=== PATIENT | female | born 1965 | race Caucasian/White ===

== ENCOUNTER 2019-01-27 05:38 | Outpatient (CLI) | payer OTHER ==
[~2019-01-27] VITALS: Ht 160 cm; Wt 52.7 kg
[~2019-01-27 05:38] MED LIST: CEFU500T5 PO
[2019-01-27] MEDS ORDERED: BIOT800T PO (11:00)
[2019-01-27] MEDS ORDERED: [UNRECOGNIZED DRUG - CODE] PO (11:00)
[2019-01-31] MEDS ORDERED: PANT40TA2 PO (14:03)
== END 2019-01-27 11:00 | disposition home or self-care (01) ==
LOC: PREOP 05:38
PROVIDERS: ATTEND Surgery
DX: Z01.818 Encounter for other preprocedural examination (principal)

== ENCOUNTER → 2019-05-14 | Outpatient (CLI) | payer OTHER ==
[~2019-05-14] MED LIST changes: +BIOT800T PO; +FAMO-108 PO; +PANT40TA2 PO
--- NOTE | 2019-05-14 10:33 | Diagnostic Imaging Report ---
INDICATION: Abdominal pain and bloating for 3 days. Time of exam 9:43 AM No free air is identified. There are surgical clips in gallbladder fossa. The bowel gas pattern appears to be nonobstructed. No pathological calcifications are seen. IMPRESSION: No acute abnormality is detected. Dictated by: Dictated on workstation # [id number]
== END ==
LOC: RAD FS 09:37
PROVIDERS: ATTEND Nurse Practitioner Family
DX: R10.13 Epigastric pain (principal); R14.0 Abdominal distension (gaseous)
CPT/HCPCS: 74019

== ENCOUNTER → 2019-10-02 | Outpatient (CLI) | payer OTHER ==
--- NOTE | 2019-10-02 11:56 | Diagnostic Imaging Report ---
Indication: Left thumb pain 3 views of left thumb show soft tissue swelling. There is no fracture, dislocation or radiopaque foreign object. IMPRESSION: Soft tissue swelling. No acute osseous abnormality seen. Dictated by: Dictated on workstation # [id number]
== END ==
LOC: RAD FS 11:28
PROVIDERS: ATTEND Nurse Practitioner
DX: M79.645 Pain in left finger(s) (principal); M79.89 Other specified soft tissue disorders
CPT/HCPCS: 73140

== ENCOUNTER → 2019-10-09 | Outpatient (CLI) | payer OTHER ==
--- NOTE | 2019-10-09 11:20 | Diagnostic Imaging Report ---
PROCEDURE: MRI left upper extremity without contrast. TECHNIQUE: Multiplanar, multisequence non contrast-enhanced MRI of the left upper extremity was accomplished. INDICATION: Subcutaneous mass of the left thumb. COMPARISON: Radiographs from 10/02/2019. FINDINGS: No acute fracture is seen in the left thumb. Alignment is normal. The ulnar and radial collateral ligaments are intact at the MCP joint and IP joint. The flexor and extensor tendons appear to be intact. The imaged musculature appears normal with no atrophy seen. At the ulnar and volar aspect of the left thumb proximal phalanx, there is a lobulated STIR bright fluid collection measuring 1.4 x 0.8 cm on axial imaging, and 1.5 cm craniocaudal. There is mild surrounding soft tissue edema. No communication with the joint is seen. No contrast was given to evaluate for internal enhancement. IMPRESSION: 1. T2 bright soft tissue mass at the ulnar and volar aspect of the left thumb proximal phalanx, thought to be a fluid collection on this noncontrast study. This could represent a hematoma or abscess. Dictated by: Dictated on workstation # [id number]
== END ==
LOC: RAD 09:02
PROVIDERS: ATTEND Nurse Practitioner
DX: R22.32 Localized swelling, mass and lump, left upper limb (principal)
CPT/HCPCS: 73218

== ENCOUNTER 2019-10-17 11:20 | Outpatient (CLI) | payer OTHER ==
[~2019-10-17] VITALS: Ht 162 cm; Wt 48.1 kg
== END 2019-10-17 11:21 | disposition home or self-care (01) ==
LOC: PREOP 11:20
PROVIDERS: ATTEND Orthopaedic Surgery
DX: Z01.818 Encounter for other preprocedural examination (principal)

== ENCOUNTER 2020-04-13 07:54 | Emergency (ER) | payer OTHER ==
[~2020-04-13] VITALS: Ht 160 cm; Wt 50.0 kg
[~2020-04-13 07:54] MED LIST changes: +ACHD5005 PO
--- NOTE | 2020-04-13 08:16 | ED Headache ---
General Chief Complaint: Head/Cervical Problems Stated Complaint: HEADACHE; TREMBLING; HIGH BP Source: patient (MARC SOSA MD) History of Present Illness Date Seen by Provider: Apr 13, 2020 Time Seen by Provider: 07:55 Initial Comments 54-year-old female presenting with occipital headache that has been off and on for the last 2 weeks. It was worse this morning when she woke up around 5 AM. She feels like her legs are weak and like "Jell-O". She was feeling like she had very dry mouth and was feeling very dizzy and lightheaded. She states this feels similar to when she had a stroke in 2013. At that time she had a blood clot and bleed in her cerebellum. She denies any fall or head injury. She states the only prescription medicine she is taking is for bladder control. She denies any blood thinners or aspirin. She does not take any medicine for blood pressure. When she was [facility] this morning they took her blood pressure and it was 180/100. Here in the emergency department she has been 160/90 initially and then slowly came down to 150/80. She denies any chest pain or nausea or vomiting. She has no diarrhea. She has no burning or pain with urination. She denies any cough or shortness of breath. She denies any change in vision but just states that she has a sensation of being lightheaded and dizzy. (MARC SOSA MD) Initial Comments Assumed the patient in transfer from [place] emergency room because they do not have CT capabilities at this time. I agree with the above documented history and physical exam. Last known well time was about 9:00 last night when she went to sleep. She woke up at 5 this morning with the symptoms of feeling weak. The headache has been intermittent for the past 2 to 3 weeks. She did go to an party host/hostess and got a new prescription but that did not seem to help her headaches. 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 She denies any trauma. She is only on medicines for urinary incontinence. She does not take aspirin. She does follow with [facility]. Echocardiogram by Dr. Ulloa 2014 demonstrating EF of 50 to 55% and only trivial aortic mitral and tricuspid regurgitation. (SANDRA MONTES DE OCA) Allergies and Home Medications Allergies Coded Allergies: codeine (Verified Adverse Reaction, Mild, Nausea, 10/22/19) sertraline (Verified Adverse Reaction, Mild, Nausea, 10/22/19) Home Medications Hydrocodone/Acetaminophen 1 Each Tablet, 1 EACH PO Q4H PRN for PAIN-SEVERE (8- 10) Prescribed by: CHELO HOWARD on 10/22/19 1056 Patient Home Medication List Home Medication List Reviewed: Yes (MARC SOSA MD) Home Medication List Reviewed: Yes (SANDRA MONTES DE OCA) Review of Systems Review of Systems Constitutional: No chills; dizziness; No fever; malaise Eyes: Denies Blurred Vision, Denies Pain, Denies Photophobia, Denies Tunnel Vis ion, Denies Vision Changes Ears, Nose, Mouth, Throat: denies ear pain, denies ear discharge, denies nose p ain, denies nose discharge, denies epistaxis, denies mouth swelling, denies loose teeth Respiratory: No cough, No short of breath Cardiovascular: No chest pain, No palpitations Gastrointestinal: No nausea, No vomiting Genitourinary: No dysuria, No frequency Musculoskeletal: No back pain, No neck pain Skin: No rash Psychiatric/Neurological: Anxiety (Worried she is having another stroke like in 2013), Headache (Occipital and left-sided headache) (MARC SOSA MD) All Other Systems Reviewed Negative Unless Noted: Yes (SANDRA MONTES DE OCA) Past Yysfkmu-Ntexpf-Dzrldy Hx Past Med/Social Hx: Reviewed Nursing Past Med/Soc Hx (MARC SOSA MD) Patient Social History Alcohol Use: Denies Use Smoking Status: Current Everyday Smoker Type Used: Cigarettes 2nd Hand Smoke Exposure: Yes Recent Hopitalizations: No (MARC SOSA MD) Alcohol Use: Occasionally Uses Smoking Status: Current Everyday Smoker Type Used: Cigarettes (Pack per day) (SANDRA MONTES DE OCA) Immunizations Up To Date Date of Pneumonia Vaccine: Nov 27, 2016 Date of Influenza Vaccine: Nov 25, 2018 (MARC SOSA MD) Seasonal Allergies Seasonal Allergies: No (MARC SOSA MD) Past Medical History Surgeries: Yes (BRAIN SURGERY (CLOT REMOVED), TUMOR REMOVED BEHIND EAR, ) Gallbladder, Hysterectomy Respiratory: No Currently Using CPAP: No Currently Using BIPAP: No Cardiac: No Neurological: Yes Stroke Sexually Transmitted Disease: No HIV/AIDS: No Genitourinary: No Gastrointestinal: Yes Gastroesophageal Reflux Musculoskeletal: No Endocrine: No HEENT: Yes (GLASSES, DENTURES) Cancer: No Brain Psychosocial: No Integumentary: No Blood Disorders: No Adverse Reaction/Blood Tranf: No (N/A) (MARC SOSA MD) Physical Exam Vital Signs Vital Signs - First Documented 04/13/20 08:18 Temp 36.2 Pulse 93 Resp 18 B/P (MAP) 164/90 (114) Pulse Ox 99 O2 Delivery Room Air (SANDRA MONTES DE OCA) Vital Signs Capillary Refill : (MARC SOSA MD) Height, Weight, BMI Height: 5'3.00" Weight: 125lbs. oz. 56.217091ja; 18.32 BMI Method: General Appearance: mild distress (anxious), thin HEENT: PERRL/EOMI, normal ENT inspection, TMs normal, pharynx normal; No photophobia Neck: non-tender, full range of motion, supple, normal inspection; No carotid bruit Cardiovascular: normal peripheral pulses, regular rate, rhythm Respiratory: chest non-tender, lungs clear, normal breath sounds, no respi ratory distress, no accessory muscle use Gastrointestinal: normal bowel sounds, non tender, soft, no pulsatile mass Extremities: normal range of motion, non-tender, normal capillary refill Psychiatric: alert, oriented x 3 Crainal Nerves: No normal hearing (hard of hearing); normal speech, PERRL Coordination/Gait: normal finger to nose, normal gait Motor/Sensory: no motor deficit, sensory deficit (slight decreased sensation to right cheek/face compared to left) Skin: normal color, warm/dry (MARC SOSA MD) Psychiatric: alert, oriented x 3 Crainal Nerves: No normal hearing (Chronic hard of hearing but able to hear fingers rubbing beside her head) (SANDRA MONTES DE OCA) Progress/Results/Core Measures Results/Orders Lab Results Laboratory Tests Test 04/13/20 09:30 04/13/20 09:47 04/13/20 09:49 Range/Units White Blood Count 10.6 4.3-11.0 10^3/uL Red Blood Count 4.45 3.80-5.11 10^6/uL Hemoglobin 14.9 11.5-16.0 g/dL Hematocrit 43 35-52 % Mean Corpuscular Volume 97 80-99 fL Mean Corpuscular Hemoglobin 34 25-34 pg Mean Corpuscular Hemoglobin Concent 35 32-36 g/dL Red Cell Distribution Width 11.7 10.0-14.5 % Platelet Count 207 130-400 10^3/uL Mean Platelet Volume 10.3 9.0-12.2 fL Immature Granulocyte % (Auto) 0 % Neutrophils (%) (Auto) 73 42-75 % Lymphocytes (%) (Auto) 19 12-44 % Monocytes (%) (Auto) 6 0-12 % Eosinophils (%) (Auto) 1 0-10 % Basophils (%) (Auto) 1 0-10 % Neutrophils # (Auto) 7.8 1.8-7.8 10^3/uL Lymphocytes # (Auto) 2.0 1.0-4.0 10^3/uL Monocytes # (Auto) 0.7 0.0-1.0 10^3/uL Eosinophils # (Auto) 0.1 0.0-0.3 10^3/uL Basophils # (Auto) 0.1 0.0-0.1 10^3/uL Immature Granulocyte # (Auto) 0.0 0.0-0.1 10^3/uL Prothrombin Time 12.5 12.2-14.7 SEC INR Comment 1.0 0.8-1.4 Activated Partial Thromboplast Time 26 24-35 SEC D-Dimer < 0.27 0.00-0.49 UG/ML Sodium Level 136 135-145 MMOL/L Potassium Level 4.3 3.6-5.0 MMOL/L Chloride Level 102 98-107 MMOL/L Carbon Dioxide Level 26 21-32 MMOL/L Anion Gap 8 5-14 MMOL/L Blood Urea Nitrogen 14 7-18 MG/DL Creatinine 0.74 0.60-1.30 MG/DL Estimat Glomerular Filtration Rate > 60 BUN/Creatinine Ratio 19 Glucose Level 97 70-105 MG/DL Calcium Level 9.2 8.5-10.1 MG/DL Corrected Calcium 8.9 8.5-10.1 MG/DL Total Bilirubin 0.9 0.1-1.0 MG/DL Aspartate Amino Transf (AST/SGOT) 25 5-34 U/L Alanine Aminotransferase (ALT/SGPT) 16 0-55 U/L Alkaline Phosphatase 64 40-136 U/L Troponin I < 0.028 <0.028 NG/ML Total Protein 7.0 6.4-8.2 GM/DL Albumin 4.4 3.2-4.5 GM/DL Glucometer 97 70-110 MG/DL Urine Color YELLOW Urine Clarity CLEAR Urine pH 7.0 5-9 Urine Specific [place] <=1.005 1.016-1.022 Urine Protein NEGATIVE NEGATIVE Urine Glucose (UA) NEGATIVE NEGATIVE Urine Ketones NEGATIVE NEGATIVE Urine Nitrite NEGATIVE NEGATIVE Urine Bilirubin NEGATIVE NEGATIVE Urine Urobilinogen 0.2 < = 1.0 MG/DL Urine Leukocyte Esterase NEGATIVE NEGATIVE Urine RBC (Auto) TRACE-I NEGATIVE Urine RBC RARE /HPF Urine WBC NONE /HPF Urine Squamous Epithelial Cells 2-5 /HPF Urine Crystals NONE /LPF Urine Bacteria NEGATIVE /HPF Urine Casts NONE /LPF Urine Mucus NEGATIVE /LPF Urine Culture Indicated NO (SANDRA MONTES DE OCA) My Orders Orders - SANDRA MONTES DE OCA Cbc With Automated Diff (04/13/20 09:38) Protime With Inr (04/13/20:38) Partial Thromboplastin Time (04/13/20 09:38) Comprehensive Metabolic Panel (04/13/20 09:38) Fibrin Degradation Products (04/13/20 09:38) Troponin I (04/13/20:38) Ua Culture If Indicated (04/13/20 09:38) Chest 1 View, Ap/Pa Only (04/13/20 09:38) Ekg Tracing (04/13/20 09:38) Nothing By Mouth (04/13/20 Lunch) Accucheck Stat ONCE (04/13/20 09:38) Ed Iv/Invasive Line Start (04/13/20 09:38) Ed Iv/Invasive Line Start (04/13/20 09:38) Vital Signs Stroke Patient Q15M (04/13/20 09:38) O2 (04/13/20 09:38) Intake & Output 06,14,22 (04/13/20 09:38) Monitor-Rhythm Ecg Trace Only (04/13/20 09:38) Dysphagia Screening Tool (04/13/20 09:38) Ct Angio Head W Wo (04/13/20 09:38) Lipid Panel (04/14/20 06:00) Ed Iv/Invasive Line Start (2/23/21 09:40) Ns Iv 500 Ml (Sodium Chloride 0.9%) (04/13/20 09:45) Iohexol Injection (Omnipaque 350 Mg/Ml 1 (04/13/20 10:15) Received Contrast (Hold Metformin- Contr (04/13/20 10:15) Sodium Chloride Flush (Catheter Flush Sy (04/13/20 10:15) Ns (Ivpb) (Sodium Chloride 0.9% Ivpb Bag (04/13/20 10:15) Ketorolac Injection (Toradol Injection) (04/13/20 10:45) Promethazine Injection (Phenergan Injec (04/13/20 10:45) Diphenhydramine Tablet (Benadryl Tablet) (04/13/20 10:45) (SANDRA MONTES DE OCA) Medications Given in ED Current Medications Medications Dose Ordered Sig/Rashard Route Start Time Stop Time Status Last Admin Dose Admin Diphenhydramine HCl 25 mg ONCE ONCE PO 04/13/20 10:45 04/13/20 10:46 DC 04/13/20 10:43 25 MG Iohexol 75 ml ONCE ONCE IV 04/13/20 10:15 04/13/20 10:20 DC 04/13/20 10:40 75 ML Ketorolac Tromethamine 30 mg ONCE ONCE IVP 04/13/20 10:45 04/13/20 10:46 DC 04/13/20 10:43 30 MG Promethazine HCl 25 mg ONCE ONCE IVP 04/13/20 10:45 04/13/20 10:46 DC 04/13/20 10:45 25 MG Sodium Chloride 100 ml ONCE ONCE IV 04/13/20 10:15 04/13/20 10:20 DC 04/13/20 10:40 80 ML Sodium Chloride 500 ml @ 0 mls/hr Q0M ONCE IV 04/13/20 09:45 04/13/20 09:46 DC 04/13/20 10:36 500 MLS/HR (SANDRA MONTES DE OCA) Vital Signs/I&O 04/13/20 04/13/20 04/13/20 08:18 08:31 09:30 Temp 36.2 36.2 37.0 Pulse 93 93 63 Resp 18 18 16 B/P (MAP) 164/90 (114) 164/90 (114) 142/80 (100) Pulse Ox 99 99 100 O2 Delivery Room Air Room Air Room Air (SANDRA MONTES DE OCA) Progress Progress Note : Progress Note When advised pt CT scan is down so unable to complete work up for stroke here and will have to transfer to [facility] for CT but can do blood work and ECG here she asked to be able to have her family drive her down so she could be seen and not have to go through extra expense of transfer and multiple bills. She has a NIHSS of 1 with decreased sensation to right cheek/face. She is declining ambulance transport but willing to do rest of work up and wants family to transport her so she can leave right away rather than wait for labs and arranging transport. 0827 d/w Yue at [facility] ED and she will have Dr. Montes De Oca call me back when he is available 0835 Dr. Montes De Oca updated about pt coming by POV. (MARC SOSA MD) Progress Note #1: Time: :44 Progress Note On repeat examination in the ER I agree with the above documented history and physical exam by Dr. Sosa. The patient does indeed have one-point NIH for decreased sensation on the left side of her face compared to right. She has no other neurologic symptoms besides paresthesias of bilateral lower extremities. Certainly her subacute, and intractable headaches for the past few weeks are concerning and could be causing some anxiety to explain some of her symptoms however a CT of her head is warranted. Because of her new onset symptoms with a last known well time that it is greater than 4 hours were going to go for a CT angiogram if her initial CT head does not show a intracranial hemorrhage. We will then consult with neurology at [facility] about the possibility of stroke. She i s not likely to be a candidate for TPA because the benefits will be to few with an NIH of one-point. Progress Note #2: Time: :44 Progress Note After treatment for complex migraine the patient symptoms are improved. She is having no neurologic symptoms. NIH is 0 points. Her headache is only mild at this time. We did offer her another dose of medication before she left. We gave good return precautions. Patient declined any further medicines and will follow up with primary care. (SANDRA MONTES DE OCA) Initial ECG Impression Date: Apr 13, 2020 Initial ECG Impression Time: 09:29 Initial ECG Rate: 58 Initial ECG Rhythm: Normal Sinus Initial ECG Intervals: Normal Initial ECG Impression: Normal Initial ECG Comparisson: Unchanged Comment Normal sinus rhythm without clinically relevant ST changes. (SANDRA MONTES DE OCA) Diagnostic Imaging Diagonstic Imaging: Xray Plain Films/CT/US/NM/MRI: chest (1v) Comments [facility], [place] NAME: MIGUELITO MIRANDA MED REC#: [id number] PT STATUS: REG ER : 1965 PHYSICIAN: SANDRA MONTES DE OCA MD ADMIT DATE: 04/13/20/ER Draft Date of Exam:04/13/20 CHEST 1 VIEW, AP/PA ONLY INDICATION: Weakness. Headache. FINDINGS: The portable chest shows the lungs to be well-aerated and clear. The heart is not enlarged. No pulmonary edema or hilar adenopathy. No pneumothorax or pleural effusion. A quality assurance monitor overlies the left chest. IMPRESSION: Normal portable chest. Dictated on workstation # [id number] Dict: 04/13/20 1056 Trans: 04/13/20 1058 [id number] Interpreted by: MIGUE FRAGA MD Electronically signed by: Reviewed: Reviewed by Me Diagonstic Imaging: CT (CT angiogram) Plain Films/CT/US/NM/MRI: head (Head and neck) Comments NAME: MIGUELITO MIRANDA MED REC#: [id number] PT STATUS: REG ER : 1965 PHYSICIAN: SANDRA MONTES DE OCA MD ADMIT DATE: 04/13/20/ER Draft Date of Exam:04/13/20 CT ANGIO HEAD W WO CLINICAL INDICATION: Patient with history of stroke and bleed in 2013. Patient has headache, tingling in legs and left facial deficits. EXAMS: 1: Head CT with and without IV contrast. Auto Exposure Controls were utilized during the CT exam to meet ALARA standards for radiation dose reduction. 2: CT angiogram of the head performed with 75 cc of Omnipaque 350 IV contrast. Sagittal and coronal MIP reformations were created for better visualization of vascular anatomy. COMPARISON: MRI of the brain and MRA of the barrow of [place] without contrast dated 04/17/2014. FINDINGS: Head CT: There is skull streak artifact which obscures portions of brainstem and posterior fossa. There is occipital craniectomy with cranioplasty changes noted. There is minimal encephalomalacia involving the medial aspect of left cerebellum which correlates to area of prior intraparenchymal hemorrhage. The brain parenchymal volume appears appropriate for patient's age. Minimally prominent fluid-filled occipital horn of left lateral ventricle is again seen. There is no abnormal IV contrast enhancement. There is normal zavala-white matter distinction. There is no hydrocephalus, brain herniation or midline shift. Basal cisterns are unremarkable. Besides postop changes, the extracranial soft tissue, skull, and orbits are unremarkable. Paranasal sinuses and mastoid air cells are clear. CT angiogram: The visualized distal cervical ICA, petrous, cavernous, and intracranial ICA are patent. The bilateral ACAs and their distal branches are patent. The bilateral MCAs and their distal branches are patent. The intradural bilateral vertebral arteries, basilar artery, superior cerebellar artery, and bilateral WIRE LOOP MACHINE OPERATOR are patent. The dural venous sinuses are patent. IMPRESSION: 1: Unremarkable CT angiogram of the [place] of [place] with no significant stenosis, aneurysm, vascular malformation, or dissection. 2: Postop changes with craniectomy and cranioplasty changes involving the occipital region. Again seen small area of encephalomalacia involving the medial aspect of left cerebellum which correlates to prior area of intraparenchymal hemorrhage. Dictated on workstation # [id number] Dict: 04/13/20 1051 Trans: 04/13/20 1107 [facility] [id number] Interpreted by: RADHA TORRES MD Electronically signed by: Reviewed: Reviewed by Me (SANDRA MONTES DE OCA) Consults : Consults Notes Dr Carballo, neurology at [facility] he says he is not impressed from a neurologic standpoint for stroke ischemic or otherwise. Since her decreased sensation has not progressed and is only limited to her face and in combination with presentation of a headache he would think more of a complex migraine presentation. He would recommend getting a migraine cocktail and have her follow-up through primary care office from there. He does not recommend any further vascular imaging or work-up at this time. He does not recommend TPA at this time. (SANDRA MONTES DE OCA) Departure Impression Primary Impression: Occipital headache Additional Impressions: Elevated blood pressure reading Complex migraine Disposition: 01 HOME, SELF-CARE Condition: Improved Departure-Patient Inst. Decision time for Depature: 11:45 (SANDRA MONTES DE OCA) Referrals: NICOLLE FLORES APRN (PCP) Primary Care Physician [facility] (Family) Primary Care Physician Patient Instructions: Headache, Adult (DC) Add. Discharge Instructions: Tylenol 1000 mg every 8 hours as necessary for pain. Ibuprofen 800 mg every 8 hours as necessary for pain. Take today and get some sleep. Follow-up with your primary care doctor if your symptoms persist to discuss other possible causes for your headache. Return to the ER promptly if you experience total numbness, loss of control of limbs, facial droop, slurred speech or other worrisome symptoms. All discharge instructions reviewed with patient and/or family. Voiced understanding. Work/School Note: Work Release Form Date Seen in the Emergency Department: Apr 13, 2020 Return to Work: Apr 14, 2020 Restrictions: No Restrictions NIH Stroke Scale NIH Stroke Scale NIH : Select: Initial (0824) Level of Consciousness: 0=Alert Level of Consciousness-Questio: 0=Answers both month/age LOC Commands: 0=Performs both tasks Gaze: 0=Normal Visual Reyes: 0=No visual loss Facial Movement (Facial Paresi: 0=Normal symmetrical mnt Motor Function-Arms Right: 0=No drift Motor Function-Arms Left: 0=No drift Motor Function-Legs Right: 0=No drift Motor Function-Legs Left: 0=No drift Limb Ataxia: 0=Absent Sensory: 1=Mild to Moderate loss Best Language: 0=No aphasia Dysarthria: 0=Normal Extinction & Inattention: 0=No abnormality NIH Stroke Scale Score: 1 (MARC SOSA MD) NIH #1: Select: Other (Post transfer pre-CT) Level of Consciousness: 0=Alert Level of Consciousness-Questio: 0=Answers both month/age LOC Commands: 0=Performs both tasks Gaze: 0=Normal Visual Reyes: 0=No visual loss Facial Movement (Facial Paresi: 0=Normal symmetrical mnt Motor Function-Arms Right: 0=No drift Motor Function-Arms Left: 0=No drift Motor Function-Legs Right: 0=No drift Motor Function-Legs Left: 0=No drift Limb Ataxia: 0=Absent Sensory: 1=Mild to Moderate loss (Left face decreased sensation compared to right all 3 branches) Best Language: 0=No aphasia Dysarthria: 0=Normal Extinction & Inattention: 0=No abnormality NIH Stroke Scale Score: 1 NIH #2: Select: Discharge Level of Consciousness: 0=Alert Level of Consciousness-Questio: 0=Answers both month/age LOC Commands: 0=Performs both tasks Gaze: 0=Normal Visual Reyes: 0=No visual loss Facial Movement (Facial Paresi: 0=Normal symmetrical mnt Motor Function-Arms Right: 0=No drift Motor Function-Arms Left: 0=No drift Motor Function-Legs Right: 0=No drift Motor Function-Legs Left: 0=No drift Limb Ataxia: 0=Absent Sensory: 0=Normal:no loss Best Language: 0=No aphasia Dysarthria: 0=Normal Extinction & Inattention: 0=No abnormality NIH Stroke Scale Score: 0 (SANDRA MONTES DE OCA) MARC SOSA MD Apr 13, 2020 08:16 SANDRA MONTES DE OCA Apr 13, 2020 09:46
[2020-04-13 09:44] LABS: BASOPHILS # (AUTO) 0.1 10^3/uL (0.0-0.1); BASOPHILS % (AUTO) 1 % (0-10); EOSINOPHILS # (AUTO) 0.1 10^3/uL (0.0-0.3); EOSINOPHILS % (AUTO) 1 % (0-10); HEMATOCRIT 43 % (35-52); HEMOGLOBIN 14.9 g/dL (11.5-16.0); LYMPHOCYTES % (AUTO) 19 % (12-44); MEAN CORPUSCULAR HEMOGLOBIN 34 pg (25-34); MEAN CORPUSCULAR HGB CONC 35 g/dL (32-36); MEAN CORPUSCULAR VOLUME 97 fL (80-99); MEAN PLATELET VOLUME 10.3 fL (9.0-12.2); MONOCYTES # (AUTO) 0.7 10^3/uL (0.0-1.0); MONOCYTES % (AUTO) 6 % (0-12); NEUTROPHILS # (AUTO) 7.8 10^3/uL (1.8-7.8); NEUTROPHILS % (AUTO) 73 % (42-75); PLATELET COUNT 207 10^3/uL (130-400); WHITE BLOOD COUNT 10.6 10^3/uL (4.3-11.0)
[2020-04-13] MEDS ORDERED: NS IV 500 ML 500 ML IV ONE (09:45)
[2020-04-13 09:54] LABS: BILIRUBIN,URINE NEGATIVE (NEGATIVE); CLARITY,URINE CLEAR; COLOR,URINE YELLOW; GLUCOSE, URINE (UA) NEGATIVE (NEGATIVE); KETONES,URINE NEGATIVE (NEGATIVE); LEUKOCYTE ESTERASE ,URINE NEGATIVE (NEGATIVE); NITRITE,URINE NEGATIVE (NEGATIVE); PROTEIN,URINE NEGATIVE (NEGATIVE)
[2020-04-13 09:55] LABS: ALBUMIN 4.4 GM/DL (3.2-4.5); CHLORIDE 102 MMOL/L (98-107); POTASSIUM 4.3 MMOL/L (3.6-5.0); SODIUM 136 MMOL/L (135-145)
[2020-04-13 09:57] LABS: CALCIUM 9.2 MG/DL (8.5-10.1)
[2020-04-13 09:58] LABS: FIBRIN DEGRADATION PRODUCTS < 0.27 UG/ML (0.00-0.49); GLUCOSE 97 MG/DL (70-105); PARTIAL THROMBOPLASTIN TIME 26 SEC (24-35); PROTHROMBIN TIME PATIENT 12.5 SEC (12.2-14.7)
[2020-04-13 09:59] LABS: CARBON DIOXIDE 26 MMOL/L (21-32)
[2020-04-13 10:00] LABS: BILIRUBIN,TOTAL 0.9 MG/DL (0.1-1.0)
[2020-04-13 10:01] LABS: ALKALINE PHOSPHATASE 64 U/L (40-136); CREATININE SERUM 0.74 MG/DL (0.60-1.30); GFR ESTIMATED > 60
[2020-04-13 10:02] LABS: BACTERIA,URINE NEGATIVE /HPF; RBC,URINE RARE /HPF
[2020-04-13 10:03] LABS: BUN/CREATININE RATIO 19
[2020-04-13 10:04] LABS: ALANINE AMINOTRANSFERASE 16 U/L (0-55)
[2020-04-13] MEDS ORDERED: CATHETER FLUSH 10 ML SYR IV PRN (10:15)
[2020-04-13] MEDS ORDERED: HOLD METFORMIN - RECEIVED CONTRAST 20 ML VIAL IV SCH (10:15)
[2020-04-13] MEDS ORDERED: NS 100 ML (IVPB) BAG IV ONE (10:15)
[2020-04-13] MEDS ORDERED: IOHEXOL 350 MG/ML 100 ML (OMNIPAQUE 350) VIAL IV ONE (10:15)
[2020-04-13] MEDS ORDERED: PROMETHAZINE INJ 25 MG/ML (PHENERGAN) AMP IVP ONE (10:45)
[2020-04-13] MEDS ORDERED: diphenhydrAMINE 25 MG TAB (BENADRYL) PO ONE (10:45)
[2020-04-13] MEDS ORDERED: KETOROLAC 30 MG/ML VIAL IVP ONE (10:45)
--- NOTE | 2020-04-13 10:58 | Diagnostic Imaging Report ---
INDICATION: Weakness. Headache. FINDINGS: The portable chest shows the lungs to be well-aerated and clear. The heart is not enlarged. No pulmonary edema or hilar adenopathy. No pneumothorax or pleural effusion. A monitoring and evaluation advisor overlies the left chest. IMPRESSION: Normal portable chest. Dictated by: Dictated on workstation # [id number]
--- NOTE | 2020-04-13 11:07 | Diagnostic Imaging Report ---
CLINICAL INDICATION: Patient with history of stroke and bleed in 2013. Patient has headache, tingling in legs and left facial deficits. EXAMS: 1: Head CT with and without IV contrast. Auto Exposure Controls were utilized during the CT exam to meet ALARA standards for radiation dose reduction. 2: CT angiogram of the head performed with 75 cc of Omnipaque 350 IV contrast. Sagittal and coronal MIP reformations were created for better visualization of vascular anatomy. COMPARISON: MRI of the brain and MRA of the [place] without contrast dated 04/17/2014. FINDINGS: Head CT: There is skull streak artifact which obscures portions of brainstem and posterior fossa. There is occipital craniectomy with cranioplasty changes noted. There is minimal encephalomalacia involving the medial aspect of left cerebellum which correlates to area of prior intraparenchymal hemorrhage. The brain parenchymal volume appears appropriate for patient's age. Minimally prominent fluid-filled occipital horn of left lateral ventricle is again seen. There is no abnormal IV contrast enhancement. There is normal zavala-white matter distinction. There is no hydrocephalus, brain herniation or midline shift. Basal cisterns are unremarkable. Besides postop changes, the extracranial soft tissue, skull, and orbits are unremarkable. Paranasal sinuses and mastoid air cells are clear. CT angiogram: The visualized distal cervical ICA, petrous, cavernous, and intracranial ICA are patent. The bilateral ACAs and their distal branches are patent. The bilateral MCAs and their distal branches are patent. The intradural bilateral vertebral arteries, basilar artery, superior cerebellar artery, and bilateral ADMISSION LIAISON are patent. The dural venous sinuses are patent. IMPRESSION: 1: Unremarkable CT angiogram of the [place] with no significant stenosis, aneurysm, vascular malformation, or dissection. 2: Postop changes with craniectomy and cranioplasty changes involving the occipital region. Again seen small area of encephalomalacia involving the medial aspect of left cerebellum which correlates to prior area of intraparenchymal hemorrhage. Dictated by: Dictated on workstation # [id number]
[2020-04-13 11:52] VITALS: BP 153/84
== END 2020-04-13 11:52 | disposition home or self-care (01) ==
LOC: EDUNIT# 07:54 → ER FS 07:57 → ER 11:52
DX: G43.809 Other migraine, not intractable, without status migrainosus (principal); F41.9 Anxiety disorder, unspecified; R03.0 Elevated blood-pressure reading, without diagnosis of hypertension; F17.210 Nicotine dependence, cigarettes, uncomplicated; Z88.5 Allergy status to narcotic agent; Z88.8 Allergy status to other drugs, medicaments and biological substances; Z86.73 Personal history of transient ischemic attack (TIA), and cerebral infarction without residual deficits; Z85.841 Personal history of malignant neoplasm of brain
CPT/HCPCS: 36415; 70496; 71045; 80053; 81000; 82962; 84484; 85025; 85379; 85610; 85730; 93005; 93041

== ENCOUNTER 2020-06-17 08:24 | Emergency (ER) | payer OTHER ==
[~2020-06-17] VITALS: Ht 160 cm; Wt 49.0 kg
[2020-06-17] MEDS ORDERED: KETOROLAC 30 MG/ML VIAL IVP STA (08:50)
[2020-06-17] MEDS ORDERED: NS IV 1000 ML 1,000 ML IV STA (08:50)
[2020-06-17] MEDS ORDERED: PROMETHAZINE INJ 25 MG/ML (PHENERGAN) AMP IVP STA (08:50)
[2020-06-17] MEDS ORDERED: diphenhydrAMINE 50 MG/ML INJ (BENADRYL) IVP STA (08:50)
[2020-06-17 09:05] LABS: HEMATOCRIT 45 % (35-52); HEMOGLOBIN 15.3 G/DL (11.5-16.0); MEAN CORPUSCULAR HEMOGLOBIN 34 PG (25-34); MEAN CORPUSCULAR VOLUME 98 FL (80-99); WHITE BLOOD COUNT 10.5 10^3/uL (4.3-11.0)
[2020-06-17 09:06] LABS: BASOPHILS # (AUTO) 0.1 10^3/uL (0.0-0.1); BASOPHILS % (AUTO) 1 % (0-10); EOSINOPHILS # (AUTO) 0.1 10^3/uL (0.0-0.3); EOSINOPHILS % (AUTO) 1 % (0-10); LYMPHOCYTES # (AUTO) 2.3 X 10^3 (1.0-4.0); LYMPHOCYTES % (AUTO) 22 % (12-44); MEAN CORPUSCULAR HGB CONC 34 G/DL (32-36); MEAN PLATELET VOLUME 10.7 FL (7.4-10.4); MONOCYTES # (AUTO) 0.6 X 10^3 (0.0-1.0); MONOCYTES % (AUTO) 6 % (0-12); NEUTROPHILS # (AUTO) 7.4 X 10^3 (1.8-7.8); NEUTROPHILS % (AUTO) 71 % (42-75); PLATELET COUNT 210 10^3/uL (130-400)
--- NOTE | 2020-06-17 09:23 | ED Headache ---
General Chief Complaint: Head/Cervical Problems Stated Complaint: DIZZINESS; HEADACHE Source: patient, old records History of Present Illness Date Seen by Provider: Jun 17, 2020 Time Seen by Provider: 08:28 Initial Comments 54-year-old female presenting with complaints of occipital headache and dizziness since Sunday. She states she woke up with headache and dizziness. She thought maybe it was her neck and had gone to the chiropractor on Sunday. After having an adjustment and acupuncture by the chiropractor she was still having pain. She was seen in the clinic today for her symptoms and because of having a prior aneurysm and hemorrhagic stroke she is very nervous that this is happening again. She states that she had similar symptoms prior to that stroke in the past. She was seen April 13 for similar complaints. At that time she was having a little facial numbness. Her symptoms were consistent with a complex migraine. Her symptoms resolved with treatment for complex migraine on with Toradol, Benadryl, Phenergan. CT head and CT angiogram head and neck were negative for acute process when seen April 13. She has taken Ibuprofen for the headache and symptoms with mild improvement in pain. She reports having increasing frequency of headaches in last few months. Allergies and Home Medications Allergies Coded Allergies: codeine (Verified Adverse Reaction, Mild, Nausea, 10/22/19) sertraline (Verified Adverse Reaction, Mild, Nausea, 10/22/19) Home Medications Hydrocodone/Acetaminophen 1 Each Tablet, 1 EACH PO Q4H PRN for PAIN-SEVERE (8- 10) Prescribed by: CHELO HOWARD on 10/22/19 1056 Meclizine HCl 25 Mg Tablet, 25 MG PO TID PRN for DIZZINESS Prescribed by: MARC SOSA on 06/17/20 1045 Patient Home Medication List Home Medication List Reviewed: Yes Review of Systems Review of Systems Constitutional: see HPI; No chills, No diaphoresis; dizziness (with changing position); No fever Eyes: Denies Blurred Vision, Denies Photophobia Ears, Nose, Mouth, Throat: denies ear pain, denies ear discharge, denies nose discharge, denies epistaxis Respiratory: no symptoms reported Cardiovascular: no symptoms reported Gastrointestinal: nausea; No vomiting Genitourinary: No dysuria, No frequency Musculoskeletal: neck pain (since Sunday when she woke up with headache and neck pain) Skin: No rash Psychiatric/Neurological: See HPI, Anxiety (worried she is going to have another stroke), Headache; Denies Numbness, Denies Paresthesia Past [id number]-[id number] Hx Past Med/Social Hx: Reviewed Nursing Past Med/Soc Hx Patient Social History Type Used: Cigarettes 2nd Hand Smoke Exposure: Yes Recent Hopitalizations: No Immunizations Up To Date Date of Pneumonia Vaccine: Nov 27, 2016 Date of Influenza Vaccine: Nov 25, 2018 Seasonal Allergies Seasonal Allergies: No Past Medical History Surgeries: Yes (BRAIN SURGERY (CLOT REMOVED), TUMOR REMOVED BEHIND EAR, ) Gallbladder, Hysterectomy Respiratory: No Currently Using CPAP: No Currently Using BIPAP: No Cardiac: No Neurological: Yes Stroke Sexually Transmitted Disease: No HIV/AIDS: No Genitourinary: No Gastrointestinal: Yes Gastroesophageal Reflux Musculoskeletal: No Endocrine: No HEENT: Yes (GLASSES, DENTURES) Cancer: No Brain Psychosocial: No Integumentary: No Blood Disorders: No Adverse Reaction/Blood Tranf: No (N/A) Physical Exam Vital Signs Vital Signs - First Documented 06/17/20 08:40 Temp 37.2 Pulse 67 Resp 16 B/P (MAP) 139/90 (106) Pulse Ox 98 O2 Delivery Room Air Capillary Refill : Height, Weight, BMI Height: 5'3.00" Weight: 125lbs. oz. 56.770008jh; 19.00 BMI Method: General Appearance: WD/WN, no apparent distress HEENT: PERRL/EOMI, normal ENT inspection, TMs normal, pharynx normal Neck: full range of motion, tender lateral, tender midline Cardiovascular: normal peripheral pulses, regular rate, rhythm Respiratory: chest non-tender, lungs clear, normal breath sounds, no respiratory distress, no accessory muscle use Gastrointestinal: normal bowel sounds, non tender, soft, no pulsatile mass Extremities: normal range of motion, non-tender, normal capillary refill Psychiatric: alert, oriented x 3, other (anxious) Cra[place] Nerves: normal hearing, normal speech, PERRL Coordination/Gait: normal gait Motor/Sensory: no motor deficit, no sensory deficit Skin: normal color, warm/dry Progress/Results/Core Measures Results/Orders Lab Results Laboratory Tests Test 06/17/20 08:50 Range/Units White Blood Count 10.5 4.3-11.0 10^3/uL Red Blood Count 4.55 4.35-5.85 10^6/uL Hemoglobin 15.3 11.5-16.0 G/DL Hematocrit 45 35-52 % Mean Corpuscular Volume 98 80-99 FL Mean Corpuscular Hemoglobin 34 25-34 PG Mean Corpuscular Hemoglobin Concent 34 32-36 G/DL Red Cell Distribution Width 11.9 10.0-14.5 % Platelet Count 210 130-400 10^3/uL Mean Platelet Volume 10.7 H 7.4-10.4 FL Immature Granulocyte % (Auto) 0 % Neutrophils (%) (Auto) 71 42-75 % Lymphocytes (%) (Auto) 22 12-44 % Monocytes (%) (Auto) 6 0-12 % Eosinophils (%) (Auto) 1 0-10 % Basophils (%) (Auto) 1 0-10 % Neutrophils # (Auto) 7.4 1.8-7.8 X 10^3 Lymphocytes # (Auto) 2.3 1.0-4.0 X 10^3 Monocytes # (Auto) 0.6 0.0-1.0 X 10^3 Eosinophils # (Auto) 0.1 0.0-0.3 10^3/uL Basophils # (Auto) 0.1 0.0-0.1 10^3/uL Immature Granulocyte # (Auto) 0.0 0.0-0.1 10^3/uL Sodium Level 137 135-145 MMOL/L Potassium Level 4.2 3.6-5.0 MMOL/L Chloride Level 101 98-107 MMOL/L Carbon Dioxide Level 25 21-32 MMOL/L Anion Gap 11 5-14 MMOL/L Blood Urea Nitrogen 11 7-18 MG/DL Creatinine 0.72 0.60-1.30 MG/DL Estimat Glomerular Filtration Rate > 60 BUN/Creatinine Ratio 15 Glucose Level 88 70-105 MG/DL Calcium Level 9.9 8.5-10.1 MG/DL Corrected Calcium 8.5-10.1 MG/DL Total Bilirubin 0.4 0.1-1.0 MG/DL Aspartate Amino Transf (AST/SGOT) 21 5-34 U/L Alanine Aminotransferase (ALT/SGPT) 16 0-55 U/L Alkaline Phosphatase 68 40-136 U/L Total Protein 7.2 6.4-8.2 GM/DL Albumin 4.6 H 3.2-4.5 GM/DL My Orders Orders - MARC SOSA MD Comprehensive Metabolic Panel (06/17/20 08:50) Ed Iv/Invasive Line Start (06/17/20 08:50) Cbc With Automated Diff (06/17/20 08:50) Ns Iv 1000 Ml (Sodium Chloride 0.9%) (06/17/20 08:50) Ketorolac Injection (Toradol Injection) (06/17/20 08:50) Promethazine Injection (Phenergan Injec (06/17/20 08:50) Diphenhydramine Injection (Benadryl Inje (06/17/20 08:50) Ct Head/Cervical Spine Wo (06/17/20 09:08) Ns Iv 500 Ml (Sodium Chloride 0.9%) (06/17/20 09:45) Medications Given in ED Current Medications Medications Dose Ordered Sig/Rashard Route Start Time Stop Time Status Last Admin Dose Admin Sodium Chloride 500 ml @ ud STK-MED ONCE .ROUTE 06/17/20 09:45 06/17/20 09:53 DC 06/17/20 09:59 500 MLS/HR Vital Signs/I&O 06/17/20 08:40 Temp 37.2 Pulse 67 Resp 16 B/P (MAP) 139/90 (106) Pulse Ox 98 O2 Delivery Room Air Progress Progress Note #1: Progress Note Obtain CT scan of the head and cervical spine to evaluate for possible stroke, bleeding, skull fracture, spine fracture, compression of the spinal cord, brain tumor or mass. Since she had improvement in her symptoms in March when she received Toradol, Benadryl, Phenergan, IV fluids we will try that again today. Progress Note #2: Progress Note Patient reports some improvement in her pain and symptoms. She was still feeling a little dizzy. She also reported that as she went to use the bathroom to urinate she felt like she was getting red on her arms and legs. She denied any itching or difficulty breathing. Her IV fluids were still infusing with the Phenergan mixed into the IV fluid. I did not appreciate any redness or rash on my exam but the remaining 250-300 mL of IVF with Phenergan was stopped and a 500 mL bag of NS was given to complete fluid bolus. Progress Note #3: Progress Note CT head and cervical spine do not show acute process to account for her symptoms. Reassured pt and counseled to follow up with clinic and may need MRI or Neurology consult. Advised that after stroke or brain injury patients can develop migraines or atypical headaches. She may be having some symptoms like that and since her symptoms have been present since Sunday she may also have a tension and muscle component as well. Counseled to check back with primary provider and follow-up with care from there. Advised about return precautions as well. Since she still was reporting some dizziness with moving her head will prescribe meclizine and advised patient that it is available [id number] as well. Diagnostic Imaging Diagonstic Imaging: CT Plain Films/CT/US/NM/MRI: c-spine, head Comments NAME: MIGUELITO MIRANDA MED REC#: [id number] PT STATUS: REG ER : 1965 PHYSICIAN: MARC SOSA MD ADMIT DATE: 06/17/20/ER FS Draft Date of Exam:06/17/20 CT HEAD/CERVICAL SPINE WO PROCEDURE: CT head and CT cervical spine without contrast. TECHNIQUE: Multiple contiguous axial images were obtained through the brain and cervical spine without the use of intravenous contrast. Sagittal and coronal reformations through the cervical spine were then performed. Auto Exposure Controls were utilized during the CT exam to meet ALARA standards for radiation dose reduction. INDICATION: Headache and dizziness as well as neck pain. Correlation is made with prior head CT from 04/13/2020. CT HEAD: The ventricular size and sulcal pattern are stable. There is no midline shift. No acute intra-axial or extra-axial hemorrhage is detected. Cisterns are patent. Visualized paranasal sinuses are clear. There are postoperative changes of occipital craniectomy. IMPRESSION: No acute intracranial process is detected. CT cervical spine: Alignment is normal. There is degenerative disc disease C5-C6 level with disc space narrowing and marginal spurring. No fracture is identified. Prevertebral tissues are within normal limits. Odontoid is intact. IMPRESSION: Cervical spondylosis. No acute bony abnormality is detected. Dictated on workstation # [id number] Dict: 06/17/20 0933 Trans: 06/17/20 0956 [id number] Interpreted by: MARCIA WHITEHEAD MD Electronically signed by: Reviewed: Reviewed by Me Departure Impression Primary Impression: Occipital headache Additional Impressions: Cervical pain (neck) Dizziness Disposition: 01 HOME, SELF-CARE Condition: Improved Departure-Patient Inst. Decision time for Depature: 10:45 Referrals: [facility] (PCP) Primary Care Physician NICOLLE FLORES APRN (Family) Primary Care Physician Patient Instructions: Headache, Adult ED, Home Headache Remedies, How to Keep Track of Your Headaches, Migraines (DC) Add. Discharge Instructions: Try the meclizine for dizziness. Stay well hydrated and get plenty of rest You may continue with Ibuprofen and acetaminophen for pain. You may continue to try alternating ice and heat to your neck and head to help with pain. Check with Yin Flores APRN, in the clinic about your recurrent symptoms. All discharge instructions reviewed with patient and/or family. Voiced understanding. Scripts Meclizine HCl (Meclizine HCl) 25 Mg Tablet 25 MG PO TID PRN for DIZZINESS for 10 Days, #30 TAB 0 Refills Prov: MARC SOSA MD 06/17/20 Work/School Note: Work Release Form Date Seen in the Emergency Department: Jun 17, 2020 Return to Work: June 21, 2020 Restrictions: No Restrictions MARC SOSA MD Jun 17, 2020 09:23
[2020-06-17 09:34] LABS: ALANINE AMINOTRANSFERASE 16 U/L (0-55); ALBUMIN 4.6 GM/DL (3.2-4.5); ALKALINE PHOSPHATASE 68 U/L (40-136); BILIRUBIN,TOTAL 0.4 MG/DL (0.1-1.0); BUN/CREATININE RATIO 15; CALCIUM 9.9 MG/DL (8.5-10.1); CARBON DIOXIDE 25 MMOL/L (21-32); CHLORIDE 101 MMOL/L (98-107); CREATININE SERUM 0.72 MG/DL (0.60-1.30); GFR ESTIMATED > 60; GLUCOSE 88 MG/DL (70-105); POTASSIUM 4.2 MMOL/L (3.6-5.0); SODIUM 137 MMOL/L (135-145); TOTAL PROTEIN 7.2 GM/DL (6.4-8.2)
[2020-06-17] MEDS ORDERED: NS IV 500 ML 500 ML ONE (09:45)
--- NOTE | 2020-06-17 09:57 | Diagnostic Imaging Report ---
PROCEDURE: CT head and CT cervical spine without contrast. TECHNIQUE: Multiple contiguous axial images were obtained through the brain and cervical spine without the use of intravenous contrast. Sagittal and coronal reformations through the cervical spine were then performed. Auto Exposure Controls were utilized during the CT exam to meet ALARA standards for radiation dose reduction. INDICATION: Headache and dizziness as well as neck pain. Correlation is made with prior head CT from 04/13/2020. CT HEAD: The ventricular size and sulcal pattern are stable. There is no midline shift. No acute intra-axial or extra-axial hemorrhage is detected. Cisterns are patent. Visualized paranasal sinuses are clear. There are postoperative changes of occipital craniectomy. IMPRESSION: No acute intracranial process is detected. CT cervical spine: Alignment is normal. There is degenerative disc disease C5-C6 level with disc space narrowing and marginal spurring. No fracture is identified. Prevertebral tissues are within normal limits. Odontoid is intact. IMPRESSION: Cervical spondylosis. No acute bony abnormality is detected. Dictated by: Dictated on workstation # [id number]
[2020-06-17] MEDS ORDERED: MECL-149 PO (10:45)
[2020-06-17 11:01] VITALS: BP 121/71
== END 2020-06-17 11:01 | disposition home or self-care (01) ==
LOC: EDUNIT# 08:24 → ER FS 08:25
DX: R51.9 Headache, unspecified (principal); M54.2 Cervicalgia; R42 Dizziness and giddiness; Z88.5 Allergy status to narcotic agent; Z88.8 Allergy status to other drugs, medicaments and biological substances; Z86.73 Personal history of transient ischemic attack (TIA), and cerebral infarction without residual deficits; Z77.22 Contact with and (suspected) exposure to environmental tobacco smoke (acute) (chronic)
CPT/HCPCS: 36415; 70450; 72125; 80053; 85025